=== PATIENT | female | born 1955 | race Caucasian/White ===

== ENCOUNTER → 2019-10-19 10:40 | Outpatient (BNVA) | payer MEDICARE, BC, SELFPAY | PROVIDERS: Visit Provider Internal Medicine Rheumatology | DX: L23.5 Allergic contact dermatitis due to other chemical products (principal); R76.8 Other specified abnormal immunological findings in serum; Z79.899 Other long term (current) drug therapy; M25.50 Pain in unspecified joint; F17.210 Nicotine dependence, cigarettes, uncomplicated | CPT/HCPCS: 36415; 99204 ==

== ENCOUNTER 2019-10-19 13:16 | Outpatient (CLI) | payer MEDICARE, BC, SELFPAY ==
--- NOTE | 2019-10-19 13:23 | XR_ITS ---
WS: [id number] LEFT FOOT: 3 VIEW(S) TECHNIQUE: AP, oblique and lateral. HISTORY: joint pain COMPARISON: None available. No acute fracture or dislocation. Mild degenerative changes at the first metatarsophalangeal joint. No erosions. No displacement or sub luxations. Small calcaneal spur. Enthesopathy at the Achilles tendon. XR/XR foot LT min 3V* [id number] IMPRESSION: Mild osteoarthritis at the first metatarsophalangeal joint.
--- NOTE | 2019-10-19 13:23 | XR_ITS ---
WS: [id number] RIGHT FOOT: 3 VIEW(S) TECHNIQUE: AP, oblique and lateral. HISTORY: joint pain COMPARISON: None available. No acute fracture or dislocation. Mild hallux valgus. Mild osteopenia. No erosions. Small calcaneal spur. No soft tissue abnormality or bone destruction. XR/XR foot RT min 3V* [id number] IMPRESSION: Mild hallux valgus with no erosions.
--- NOTE | 2019-10-19 13:23 | XR_ITS ---
WS: [id number] RIGHT HAND: 3 VIEW(S) TECHNIQUE: PA, oblique and lateral. HISTORY: joint pain COMPARISON: None available. No acute fracture or dislocation. Mild interphalangeal joint space narrowing. Very small erosions at the third and fourth metacarpal he ads. Additional small erosion suspected along the medial second and fifth metacarpal heads. No erosio n at the ulnar styloid. XR/XR hand RT min 3V* [id number] IMPRESSION: Early erosions suspected at the third through fifth metacarpal heads.
--- NOTE | 2019-10-19 13:23 | XR_ITS ---
WS: [id number] LEFT HAND: 3 VIEW(S) TECHNIQUE: PA, oblique and lateral. HISTORY: joint pain COMPARISON: None available. No acute fracture or dislocation. Mild narrowing of the interphalangeal joints. Similar erosions developing at the third and fourth met acarpal. Degenerative changes at the first carpometacarpal joint. No erosion at the ulnar styloid. XR/XR hand LT min 3V* [id number] IMPRESSION: Very early small erosions suspected at the third and fourth metacarpal heads.
== END 2019-10-19 13:17 | disposition home or self-care (01) ==
LOC: RAD 13:21
PROVIDERS: PCP Family Medicine; Visit Provider Internal Medicine Rheumatology
DX: M25.50 Pain in unspecified joint (principal); L23.5 Allergic contact dermatitis due to other chemical products; R76.8 Other specified abnormal immunological findings in serum; Z79.899 Other long term (current) drug therapy; F17.210 Nicotine dependence, cigarettes, uncomplicated; M85.842 Other specified disorders of bone density and structure, left hand; M85.841 Other specified disorders of bone density and structure, right hand; M19.072 Primary osteoarthritis, left ankle and foot; M20.11 Hallux valgus (acquired), right foot
CPT/HCPCS: 73130; 73630; 80076; 81001; 82306; 82565; 82570; 84156; 85025; 85651; 86140; 86160; 86431

== ENCOUNTER → 2019-11-26 10:30 | Outpatient (BNVA) | payer MEDICARE, BC, SELFPAY | PROVIDERS: PCP Family Medicine; Visit Provider Internal Medicine Rheumatology | DX: M05.9 Rheumatoid arthritis with rheumatoid factor, unspecified (principal); R76.8 Other specified abnormal immunological findings in serum; Z79.899 Other long term (current) drug therapy; Z96.652 Presence of left artificial knee joint; L23.5 Allergic contact dermatitis due to other chemical products; F17.210 Nicotine dependence, cigarettes, uncomplicated; M25.60 Stiffness of unspecified joint, not elsewhere classified | CPT/HCPCS: 99214 ==

== ENCOUNTER 2020-01-18 08:10 | Day surgery (SDC) | payer MEDICARE, BC, SELFPAY ==
[2020-01-16 11:59] VITALS: BMI 32.5
[2020-01-18 08:41] VITALS: BP 123/71; PULSE 98; RESP 18; TEMP 36.2; O2SAT 97
--- NOTE | 2020-01-18 08:56 | ANES.PREANE2 ---
Pre-Anesthetic Assessment Pre-Anesthetic Assessment: Height/Weight: Height 1.63 m Weight 86.183 kg Temp Pulse Resp BP Pulse Ox 97.2 F L 98 18 123/71 97 01/18/20 08:41 01/18/20 08:41 01/18/20 08:41 01/18/20 08:41 01/18/20 08:41 Preop Diagnosis: pain Proposed Procedure: Operation Date: 01/18/20 09:30 Proposed Procedures p EGD/colon 59204 [id number] R10.9(Not Applicable) - Joseph Painting MD s Colonoscopy(Not Applicable) - Joseph Painting MD Last intake: Intake Last Liquid Date 01/17/20 Last Liquid Time 20:00 Last Solid Date 01/16/20 Last Solid Time 18:00 Social: Social History: Tobacco and No alcohol Exam: Pre-Anes Outpt Exam: alert, oriented x 3, clear to auscultation bilaterally and regular rate & rhythm Airway: Submandibular: WNL Cervical ROM: WNL MP: 2 Dentition: False (upper and lower) History/ROS: No significant history except as noted Pulmonary: Pulmonary: SALAS CV/HEM: CV/HEM: HTN : : None reported Hepatic: Hepatic: None reported GI: GI: GERD Metabolic: Metabolic: None reported Musc/skel: Musc/skel: RA Neuropsych: Neuropsych: None reported Anesthetic Plan: ASA status: 3 Anesthesia: Anesthesia Evaluation and MAC Risk of > 500 ml blood loss (7ml/kg in children): No PFSH Anesthesia PFSH: Medical History (Updated 01/10/20 @ 11:42 by Joseph Painting MD) Allergic contact dermatitis High risk medication use Hypertension Immunization counseling Joint pain in both hands Positive SHERRY (antinuclear antibody) Seropositive rheumatoid arthritis Surgical History History of hip replacement bilateral History of left knee replacement Family History Other Cancer Social History Smoking and tobacco status: current every day smoker Alcohol intake: never History of recent travel: No Data Anesthesia Cardiac Studies: No Data to Display
[2020-01-18] MEDS: sodium chloride 0.9% 1,000 ML 30 ML IV (09:02)
--- NOTE | 2020-01-18 09:58 | W.PM.OPSUD ---
Surgery/Procedure H&P Update DATE OF PROCEDURE: January 18, 2020 DATE H&P PERFORMED: 01/10/20 PREOP DIAGNOSIS: pain PLANNED PROCEDURE: Operation Date: 01/18/20 09:30 Proposed Procedures p EGD/colon [id number] R10.9(Not Applicable) - Joseph Painting MD s Colonoscopy(Not Applicable) - Joseph Painting MD
[2020-01-18 10:22] VITALS: BP 99/68; PULSE 81; RESP 16; TEMP 36.1; O2SAT 98
--- NOTE | 2020-01-18 10:23 | ANE.PACU2 ---
Inpatient post-anesthesia follow up: Airway intact: Yes Vital signs: Temperature 97.0 F Pulse Rate 81 Respiratory Rate 16 Blood Pressure 99/68 Pulse Oximetry 98 Oxygen Delivery Me thod Nasal Cannula Oxygen Flow Rate 3.0 Fraction of Inspir ed Oxygen Hydration adequate: Yes Nausea and vomiting: No Pain level: 1 Mental status: Baseline
[2020-01-18 10:33] VITALS: BP 101/58; PULSE 73; RESP 18; O2SAT 99
[2020-01-21 06:32] LABS: H. Pylori / CLO Test Negative
== END 2020-01-18 10:40 | disposition home or self-care (01) ==
PROVIDERS: PCP Family Medicine; Visit Provider Internal Medicine
PROC: 0DJ08ZZ Inspection of Upper Intestinal Tract, Via Natural or Artificial Opening Endoscopic (ICD-10-PCS; CPT 43235; principal; 2020-01-18 09:30)
PROC: 0DJD8ZZ Inspection of Lower Intestinal Tract, Via Natural or Artificial Opening Endoscopic (ICD-10-PCS; CPT 45378; 2020-01-18 09:30)
DX: R10.9 Unspecified abdominal pain (principal); K57.30 Diverticulosis of large intestine without perforation or abscess without bleeding; K29.71 Gastritis, unspecified, with bleeding; I10 Essential (primary) hypertension; K21.9 Gastro-esophageal reflux disease without esophagitis; M05.9 Rheumatoid arthritis with rheumatoid factor, unspecified; F17.210 Nicotine dependence, cigarettes, uncomplicated; Z79.52 Long term (current) use of systemic steroids
CPT/HCPCS: 12345; 43239; 45378; 87077; J2704; J7030

== ENCOUNTER 2020-01-22 09:43 | Outpatient (CLI) | payer MEDICARE, BC, SELFPAY ==
[2020-01-22] MEDS: iohexol 300 mg/mL 50 mL Btl PO (10:35)
--- NOTE | 2020-01-22 11:30 | CT_ITS ---
WS: [id number] CT ABDOMEN PELVIS TECHNIQUE: Contrast-enhanced CT of the abdomen and pelvis with coronal and sagittal reformatted image s. CLINICAL INFORMATION: Chronic abdominal pain COMPARISON: None. DLP: 1136.[address] scans at [facility] use at least one of these dose optimization techniques: automat ed exposure control; mA and/or kV adjustment per patient size (includes targeted exams where dose is matched to clinical indication); or iterative reconstruction. FINDINGS: Mild diffuse fatty infiltration the liver. Normal gallbladder. Normal portal vein and splenic vein. Pancreas appears normal. Normal spleen. Normal GE junction. Lung bases are well aerated. Tiny esophag eal hiatal hernia. Adrenal glands are normal. Normal renal parenchymal enhancement. No hydronephrosis. History sheet reports prior hysterectomy although uterus appears to be present. Heterogeneous enhanci ng lobulated uterine mass with endometrial thickening measuring 17 mm. Induration about the margins o f the uterus poorly defined with free fluid along the left adnexa and pelvis. Heterogeneous uterine m ass abuts the peritoneal carcinomatosis in the lower pelvis. Heterogeneous soft tissue enhancement ex tends down to the internal cervical os. Uterine mass slightly eccentric to the left. Evidence of calc ified uterine fibroids. Lobulated uterine mass measures 7.7 x 9.1 x 7.7 cm. Nodular induration and soft tissue thickening involving the ventral pelvic omentum consistent with pe ritoneal carcinomatosis. Multiple small nodular densities. Additional small nodular implants in the u pper abdomen consistent with metastatic implants. Largest implant in the ventral abdomen eccentric to the left measuring 1.7 cm just inferior and anterior to the stomach. Left periaortic and retroperitoneal pathologic lymphadenopathy with the largest heterogeneous lymph n ode measuring 2.6 x 2.3 cm left para-aortic. Additional enlarged left greater than right iliac chain lymph nodes. Additional enlarged pelvic sidewall lymph nodes greater on the left measuring up to 14 m m Diverticulosis. Uterine mass likely abuts the sigmoid colon with loss of the adjacent fat plane. No f ree air. Left VIJAYA. No evidence of small or large bowel obstruction. Discussed with Dr. Painting's nurse Skylar Kasper, SUSHMA at 01/22/2020 12:[address]/CT abdomen pelvis w con* [id number] IMPRESSION: 1. Apparent lobulated heterogeneously enhancing uterus/uterine mass with endom etrial thickening measuring 17 mm highly suspicious for carcinoma. 2. Diffuse nodular induration involving the omentum consistent with peritoneal carcinomatosis. Additional upper abdominal nodular implants consistent with me tastatic disease. 3. Small amount of free fluid in the pelvis and adnexa. 4. Heterogeneously enhancing pathologic left periaortic and retroperitoneal ly mphadenopathy with enlarged lymph nodes extending along the iliac chains and pe lvic sidewall bilaterally. 5. Uterine mass abuts the sigmoid colon with loss of the adjacent fat plane al though no evidence of free air or significant narrowing.
[2020-01-22 11:32] LABS: Blood Urea Nitrogen 7 mg/dL (8-23); Glomerular Filtration Rate 123.4 mL/min (90-130)
[2020-01-22] MEDS: iohexol 300 mg/mL 100 mL Btl IV (11:37)
== END 2020-01-22 09:44 | disposition home or self-care (01) ==
LOC: RADWPI 09:48
PROVIDERS: Family Provider Family Medicine; PCP Family Medicine; Visit Provider Internal Medicine
DX: R10.9 Unspecified abdominal pain (principal); G89.29 Other chronic pain; C55 Malignant neoplasm of uterus, part unspecified
CPT/HCPCS: 74177; 82565; 84520; Q9967

== ENCOUNTER → 2021-08-04 15:40 | Outpatient (BNVA) | payer MEDICARE, BC, SELFPAY | PROVIDERS: Family Provider Family Medicine; PCP Family Medicine; Visit Provider Internal Medicine | DX: K80.20 Calculus of gallbladder without cholecystitis without obstruction (principal) | CPT/HCPCS: 80053; 83690; 85025 ==